=== PATIENT | male | born 1945 | race Hispanic/Latino ===

== ENCOUNTER 2018-08-12 08:40 | Emergency (ER) | payer MEDICARE ==
--- NOTE | 2018-08-12 10:36 | ULT ---
LEFT LOWER EXTREMITY VENOUS DOPLER: DATE: 08/12/18. PROVIDED CHISTI Left leg pain. FINDINGS: Das scale and color Doppler sonography with spectral analysis was performed of the left common femor al, femoral, popliteal, posterior tibial, greater saphenous, and profunda femoral veins, demonstratin g a normal sonographic appearance to each. IMPRESSION: No sonographic evidence for left lower extremity deep venous thrombosis. POS: [facility]
--- NOTE | 2018-08-12 10:37 | RAD ---
LEFT KNEE RADIOGRAPHS FOUR VIEWS: Date: 08-12-18 Provided Clinical History: Left knee pain status post injury. FINDINGS: There is no evidence for fracture or other acute osseous abnormality. If there is persistent clinical concern, conservative management and follow up imaging are advised. Vascular calcification is seen. IMPRESSION: As above. POS: [facility]
== END 2018-08-12 10:37 | disposition home or self-care (01) ==
LOC: ERS 08:40
DX: S80.212A Abrasion, left knee, initial encounter (principal); S80.211A Abrasion, right knee, initial encounter; M79.89 Other specified soft tissue disorders; I25.2 Old myocardial infarction; E11.9 Type 2 diabetes mellitus without complications; E78.5 Hyperlipidemia, unspecified; I10 Essential (primary) hypertension; Z79.899 Other long term (current) drug therapy; Z79.82 Long term (current) use of aspirin; Z79.84 Long term (current) use of oral hypoglycemic drugs; W18.30XA Fall on same level, unspecified, initial encounter